=== PATIENT | female | born 1965 | race Two or more races ===

== ENCOUNTER → 2017-11-18 01:46 | Outpatient (CLI) | payer BC, SELFPAY ==
[2017-11-18 08:06] LABS: Abs Immature Grans 0.01 k/cumm (0.0-0.09); Absolute Basophil Count 0.04 k/cumm (0.0-0.2); Absolute Eosinophil Count 0.19 k/cumm (0.0-0.7); Absolute Lymphocyte Count 1.08 k/cumm (1.2-3.4); Absolute Monocyte Count 0.35 k/cumm (0.11-0.7); Absolute Neutrophil Count 3.79 k/cumm (1.2-6.7); Basophils % 0.7; Eosinophils % 3.5; HCT 42.7 % (36.0-46.0); HGB 13.9 g/dL (12.0-15.5); Immature Grans % 0.2; Lymphocytes % 19.8; Mean Corp. HGB Concentration 32.6 g/dL (32.0-36.0); Mean Corpuscular Hemoglobin 29.4 pg (27.0-33.0); Mean Corpuscular Volume 90.3 fL (80-95); Mean Platelet Volume 9.6 fL (8.0-11.0); Monocytes % 6.4; Neutrophils % 69.4; Platelet Count 283 x1000/uL (130-400); RBC 4.73 m/cumm (4.00-5.20); RBC Distribution Width 13.3 % (11.7-14.6); White Blood Cell Count 5.46 k/cumm (4.4-10.8)
[2017-11-18 09:08] LABS: ALT 15 U/L (12-78); AST 16 U/L (15-37); Albumin 3.5 g/dL (3.4-5.0); Alkaline Phosphatase 80 U/L (46-116); Anion Gap 9.4 mmol/L (3-11); BUN 15 mg/dL (7-18); Bilirubin, Total 0.5 mg/dL (0.2-1.0); CO2 28.6 mmol/L (21.0-32.0); Calcium 8.9 mg/dL (8.5-10.1); Chloride 103 mmol/L (98-107); Glucose 88 mg/dL (70-100); Potassium 4.3 mmol/L (3.5-5.1); Sodium 141 mmol/L (136-145); TSH (W/Ref FT4) 1.87 uIU/mL (0.358-3.74); Total Protein 7.3 g/dL (6.4-8.2)
== END ==
DX: R10.13 Epigastric pain (principal); D64.9 Anemia, unspecified; R10.12 Left upper quadrant pain
CPT/HCPCS: 36415; 80053; 84443; 85025

== ENCOUNTER → 2017-11-29 01:17 | Outpatient (CLI) | payer BC, SELFPAY ==
--- NOTE | 2017-11-29 08:42 | DI.REPORT_ITS ---
SYMPTOM/DIAGNOSIS: BREAST LUMPS, BILAT., PERIMENOPAUSAL 1 & II, 2 ON LT DIAGNOSTIC BILATERAL MAMMOGRAM, BILATERAL BREAST ULTRASOUND: Mammograms were interpreted according to the usual protocol including computer analysis with CAD system, tomosynthesis and C view imaging. RIGHT BREAST: Palpable abnormalities are questioned in the 2 o'clock and 11 o'clock positions. The right breast is composed of heterogeneously dense fibroglandular tissue, breast density Category C. Circumscribed nodules are seen in the medial right breast. No abnormality is seen in the upper, outer quadrant. There are two adjacent cysts corresponding to the palpable abnormality 1 cm from the nipple in the 8 o'clock position, corresponding to the mammographic abnormality. An additional 1.5 cm cyst is seen in the upper, inner quadrant at the 2 o'clock position. Two additional smaller cysts are also seen one in the upper outer quadrant measuring 1 cm. No solid masses are seen. LEFT BREAST: Palpable abnormalities are questioned in the 2 o'clock position. The left breast is composed of heterogeneously dense fibroglandular tissue, breast density Category C. No suspicious masses or suspicious microcalcifications or changes are seen. The left breast ultrasound shows an 8 x 7 mm cyst in the 12 o'clock position 1 cm from the nipple. There are other smaller cysts measuring 4 and 5 mm. No solid masses are seen. IMPRESSION: Bilateral Category 2-C, negative mammogram and bilateral breast ultrasound with benign findings of multiple cysts. Yearly screening mammography is recommended. SA ASSESSMENT OF FINDINGS: Negative with benign findings. Category 2. Patient will receive a letter notifying them of these results. Bi-RADS category C. The breasts are heterogeneously dense, which may obscure small masses.
== END ==
DX: N63.10 Unspecified lump in the right breast, unspecified quadrant (principal); N63.20 Unspecified lump in the left breast, unspecified quadrant; N60.11 Diffuse cystic mastopathy of right breast; N60.12 Diffuse cystic mastopathy of left breast; N95.8 Other specified menopausal and perimenopausal disorders
CPT/HCPCS: 76642; 77062; 77066; G0279

== ENCOUNTER 2017-12-29 13:36 | Outpatient (CLI) | payer BC, SELFPAY ==
[2017-12-29 14:40] LABS: Bilirubin Negative (Negative); Blood Small (Negative); Clarity Clear; Glucose Negative (Negative); Ketones Negative (Negative); Leukocyte Esterase Negative (Negative); Nitrite Negative (Negative); Specific Gravity 1.015 (1.005-1.025); Urobilinogen 0.2 EU/dL (Up TO 0.2); pH 7.5 (5-8)
[2017-12-29 14:49] LABS: Bacteria Rare HPF (Negative); C & S Indicated? Yes; Casts Negative LPF (Negative); Crystals Negative HPF (Negative); Epithelial Cells Rare HPF (Negative); Mucus Negative (Negative)
== END 2017-12-29 13:56 ==
DX: R30.0 Dysuria (principal)
CPT/HCPCS: 81003; 81015; 87086

== ENCOUNTER 2018-05-08 10:41 | Outpatient (REF) | payer BC, SELFPAY ==
[2018-05-08 12:39] LABS: Bilirubin Negative (Negative); Blood Moderate (Negative); Clarity Clear; Glucose Negative (Negative); Ketones Negative (Negative); Leukocyte Esterase Negative (Negative); Nitrite Negative (Negative); Specific Gravity 1.025 (1.005-1.025); Urobilinogen 0.2 EU/dL (Up TO 0.2); pH 5.5 (5-8)
[2018-05-08 12:59] LABS: Bacteria Many HPF (Negative); C & S Indicated? No/Sq. Contamination; Casts Negative LPF (Negative); Crystals Negative HPF (Negative); Epithelial Cells Many HPF (Negative); Mucus Moderate (Negative); WBC Negative HPF (0-5)
== END 2018-05-08 11:01 ==
LOC: LBN 10:41
DX: R31.9 Hematuria, unspecified (principal)
CPT/HCPCS: 81003; 81015

== ENCOUNTER 2018-05-26 07:20 | Outpatient (CLI) | payer BC, SELFPAY ==
[2018-05-26 09:05] LABS: ALT 14 U/L (12-78); AST 13 U/L (15-37); Albumin 3.2 g/dL (3.4-5.0); Alkaline Phosphatase 72 U/L (46-116); Anion Gap 6.5 mmol/L (3-11); BUN 17 mg/dL (7-18); Bilirubin, Total 0.6 mg/dL (0.2-1.0); CO2 29.5 mmol/L (21.0-32.0); CREATININE 0.77 mg/dL (0.55-1.02); Calcium 8.4 mg/dL (8.5-10.1); Chloride 103 mmol/L (98-107); Glucose 97 mg/dL (70-100); Potassium 4.3 mmol/L (3.5-5.1); Sodium 139 mmol/L (136-145); Total Protein 6.9 g/dL (6.4-8.2)
== END 2018-05-26 07:40 ==
DX: I10 Essential (primary) hypertension (principal); K21.9 Gastro-esophageal reflux disease without esophagitis; R31.29 Other microscopic hematuria; E03.9 Hypothyroidism, unspecified; G47.61 Periodic limb movement disorder
CPT/HCPCS: 36415; 80053; 81003

== ENCOUNTER 2018-05-26 12:46 | Outpatient (REF) | payer BC, SELFPAY ==
[2018-05-26 13:12] LABS: Bilirubin Negative (Negative); Blood Trace-intact (Negative); Clarity Clear; Glucose Negative (Negative); Ketones Negative (Negative); Leukocyte Esterase Negative (Negative); Nitrite Negative (Negative); Urobilinogen 0.2 EU/dL (Up TO 0.2); pH 6.5 (5-8)
[2018-05-26 13:32] LABS: Bacteria Rare HPF (Negative); C & S Indicated? No; Casts Negative LPF (Negative); Crystals Negative HPF (Negative); Epithelial Cells Rare HPF (Negative); Mucus Trace (Negative); RBC 0-2 (0-2); WBC 0-2 HPF (0-5)
== END 2018-05-26 13:06 ==
LOC: LBN 12:46
DX: N39.0 Urinary tract infection, site not specified (principal); R31.29 Other microscopic hematuria
CPT/HCPCS: 81003; 81015

== ENCOUNTER 2019-03-26 07:00 | Outpatient (CLI) | payer BC, SELFPAY ==
[2019-03-26 13:09] LABS: Abs Immature Grans 0.02 k/cumm (0.0-0.09); Absolute Basophil Count 0.05 k/cumm (0.0-0.2); Absolute Eosinophil Count 0.09 k/cumm (0.0-0.7); Absolute Lymphocyte Count 1.56 k/cumm (1.2-3.4); Absolute Monocyte Count 0.46 k/cumm (0.11-0.7); Absolute Neutrophil Count 4.48 k/cumm (1.2-6.7); Basophils % 0.8; Eosinophils % 1.4; HCT 41.8 % (36.0-46.0); HGB 13.6 g/dL (12.0-15.5); Immature Grans % 0.3; Lymphocytes % 23.4; Mean Corp. HGB Concentration 32.5 g/dL (32.0-36.0); Mean Corpuscular Hemoglobin 28.9 pg (27.0-33.0); Mean Corpuscular Volume 88.9 fL (80-95); Monocytes % 6.9; Neutrophils % 67.2; Platelet Count 332 x1000/uL (130-400); White Blood Cell Count 6.66 k/cumm (4.4-10.8)
[2019-03-26 13:35] LABS: TSH (W/Ref FT4) 1.72 uIU/mL (0.36-3.74)
[2019-03-26 13:42] LABS: Vitamin D 25 Total 19.3 ng/ml (30-100)
== END 2019-03-26 07:20 ==
PROVIDERS: Visit Provider Internal Medicine
DX: I10 Essential (primary) hypertension (principal); R63.5 Abnormal weight gain; R50.9 Fever, unspecified; E83.51 Hypocalcemia
CPT/HCPCS: 36415; 82306; 84443; 85025

== ENCOUNTER 2019-03-29 00:34 | Outpatient (CLI) | payer BC, SELFPAY ==
--- NOTE | 2019-03-29 08:25 | DI.US_ITS ---
EXAM: US ABDOMEN CLINICAL HISTORY: ABD PAIN/NAUSEA, R11.0, R10.9 TECHNIQUE: Ultrasound performed using standard protocol. COMPARISON: LEFT BREAST ULTRASOUND from 11/29/2017 FINDINGS: Visualized liver parenchyma is normal in appearance except for question slight increased echogenicity , hepatic steatosis could be present. No evidence of cholelithiasis or biliary dilatation. Kidneys are unremarkable in appearance with no nephrolithiasis or hydronephrosis. Spleen is unremarkable. A bdominal aorta and IVC are of normal diameter. IMPRESSION: Negative abdominal ultrasound except for question hepatic steatosis.
== END 2019-03-29 00:54 ==
PROVIDERS: Visit Provider Internal Medicine
DX: R10.9 Unspecified abdominal pain (principal); R11.0 Nausea; K76.89 Other specified diseases of liver
CPT/HCPCS: 76700

== ENCOUNTER 2019-03-30 11:29 | Outpatient (CLI) | payer BC, SELFPAY ==
[2019-03-30 16:08] LABS: ALT 21 U/L (14-59); AST 19 U/L (15-37); Alkaline Phosphatase 88 U/L (46-116); Anion Gap 6.7 mmol/L (3-11); BUN 13 mg/dL (7-18); Bilirubin, Total 0.3 mg/dL (0.2-1.0); CO2 29.3 mmol/L (21.0-32.0); CREATININE 0.76 mg/dL (0.55-1.02); Calcium 9.3 mg/dL (8.5-10.1); Calculated LDL 108 mg/dL; Chloride 103 mmol/L (98-107); Cholesterol 201 mg/dL (<200); Glucose 111 mg/dL (74-106); HDL Cholesterol 63 mg/dL (40-60); Potassium 4.5 mmol/L (3.5-5.1); Sodium 139 mmol/L (136-145); Total Protein 7.7 g/dL (6.4-8.2); Triglyceride 151 mg/dL (<150)
[2019-03-30 16:18] LABS: Bilirubin, Direct 0.09 mg/dL (0.00-0.20)
== END 2019-03-30 11:49 ==
PROVIDERS: Visit Provider Internal Medicine
DX: R10.9 Unspecified abdominal pain (principal); R11.0 Nausea; B35.1 Tinea unguium
CPT/HCPCS: 36415; 80053; 80061; 80076

== ENCOUNTER 2019-06-15 02:55 | Outpatient (CLI) | payer BC, SELFPAY ==
--- NOTE | 2019-06-15 07:46 | DI.MAMMO_ITS ---
EXAM: MG MAMMO SCREENING CLINICAL HISTORY: screening,Z12.39 TECHNIQUE: Bilateral full field digital CC and MLO mammographic images were obtained with 3D tomosyn thesis and utilizing computer aided detection (CAD). COMPARISON: 2009 through 2017 FINDINGS: Masses/Architectural Distortion: None seen. Microcalcifications: No suspicious pleomorphic-type are seen. Skin Thickening/Nipple Retraction: None. IMPRESSION: 1. No significant interval change with no specific features of malignancy noted. 2. Unless there is more urgent need, screening mammography is recommended, as per [employer] [employer] guidelines. BI-RADS Cat 1 - Negative Breast Density - Category C - Heterogeneously dense The mammogram demonstrates the patient's breast tissue is dense. Dense breast tissue is very common a nd is not abnormal but dense breast tissue can make it harder to find cancer on a mammogram. Also, de nse breast tissue may increase their breast cancer risk. This information about the result of the [facility] mogram report was provided to the patient to raise their awareness. Use this report when you speak wi th the patient about their risks for breast cancer, which includes their family history. At that time , you may recommend for more screening tests (Ultrasound or MRI) as they might be useful based on the ir risk. A negative radiographic report should not delay biopsy if a dominant or clinically suspicious mass is present. Up to ten percent of cancers are not identified on mammography. A negative report may reinforce clinical impression. Adenosis and dense breasts may obscure an underlying neoplasm. False positive reports average 6 to 10%. Patient will receive a letter notifying them of these results.
== END 2019-06-15 03:15 ==
DX: Z12.31 Encounter for screening mammogram for malignant neoplasm of breast (principal)
CPT/HCPCS: 77063; 77067

== ENCOUNTER 2019-10-23 21:48 | Outpatient (REF) | payer BC, SELFPAY ==
[2019-10-23 22:02] LABS: Bilirubin Negative (Negative); Blood Trace-intact (Negative); Clarity Clear (Clear); Glucose Negative (Negative); Ketones Negative (Negative); Leukocyte Esterase Negative (Negative); Nitrite Negative (Negative); Urobilinogen 0.2 EU/dL (Up TO 0.2); pH 6.5 (5-8)
[2019-10-23 22:11] LABS: Bacteria Many HPF (Negative); C & S Indicated? Yes; Casts Negative LPF (Negative); Crystals Negative HPF (Negative); Epithelial Cells Negative HPF (Negative); Mucus Negative (Negative); Other Cells Negative (Negative); RBC Negative HPF (0-2); WBC Negative HPF (0-5)
== END 2019-10-23 22:08 ==
LOC: LBN 21:48
DX: R30.0 Dysuria (principal)
CPT/HCPCS: 87077; 81003; 81015; 87086; 87186

== ENCOUNTER 2020-05-15 12:58 | Outpatient (REF) | payer BC, SELFPAY ==
--- NOTE | 2020-05-15 08:20 | PAPFT_PTH ---
PATIENT: Jeimy Haley LOC: [facility] U#:[id number] AGE/SX: 54/F ROOM: RE05/15/[address]: Eun Charles APRN : 1965 BED: DIS: 05/15/2020 SPEC #: [id number] RECD: 05/15/20 13:04 STATUS: TEQUILA GLORIA #: [id number] EDGAR: 05/15/20 08:[address]: Eun Charles DEPT: [facility] Cytology RECD BY: Alfreda Schmidt Tissues: 1 - CX/ENDOCX FOR PAP SMEARS Procedures: PAP THIN PREP/UVM Screening HPV DNA PROBE Comments: [id number]
== END 2020-05-15 12:59 | disposition home or self-care (01) ==
LOC: LBN 12:58
DX: Z12.4 Encounter for screening for malignant neoplasm of cervix (principal); Z11.51 Encounter for screening for human papillomavirus (HPV)
CPT/HCPCS: 88142; 87624

== ENCOUNTER 2020-06-18 02:37 | Outpatient (CLI) | payer BC, SELFPAY ==
--- NOTE | 2020-06-18 07:40 | DI.MAMMO_ITS ---
EXAM: MG MAMMO SCREENING CLINICAL HISTORY: screening.Z12.39 TECHNIQUE: Bilateral full field digital CC and MLO mammographic images were obtained with 3D tomosyn thesis and utilizing computer aided detection (CAD). COMPARISON: Available for comparison. FINDINGS: Masses/Architectural Distortion: None seen. Microcalcifications: No suspicious pleomorphic-type are seen. Skin Thickening/Nipple Retraction: None. IMPRESSION: 1. No significant interval change with no specific features of malignancy noted. 2. Unless there is more urgent need, screening mammography is recommended, as per [place] [employer] guidelines. BI-RADS Category 1 - Negative Breast Density - Category C - Heterogeneously dense Breast density category C or D implies that the patient has dense breast tissue. Dense breast tissue is very common and is not abnormal but dense breast tissue can make it harder to find cancer on a ma mmogram. Also, dense breast tissue may increase their breast cancer risk. This information about the result of the mammogram report was provided to the patient to raise their awareness. Use this report when you speak with the patient about their risks for breast cancer, which includes their family hist ory. At that time, you may recommend for more screening tests (Ultrasound or MRI) as they might be us eful based on their risk. A negative radiographic report should not delay biopsy if a dominant or clinically suspicious mass is present. Up to ten percent of cancers are not identified on mammography. A negative report may reinforce clinical impression. Adenosis and dense breasts may obscure an underlying neoplasm. False positive reports average 6 to 10%. Patient will receive a letter notifying them of these results.
== END 2020-06-18 02:57 ==
DX: Z12.31 Encounter for screening mammogram for malignant neoplasm of breast (principal)
CPT/HCPCS: 77063; 77067

== ENCOUNTER 2020-06-18 03:57 | Outpatient (CLI) | payer BC, SELFPAY ==
[2020-06-18 08:14] LABS: ALT 19 U/L (14-59); AST 15 U/L (15-37); Albumin 3.7 g/dL (3.4-5.0); Alkaline Phosphatase 79 U/L (46-116); Anion Gap 6.4 mmol/L (3-11); BUN 15 mg/dL (7-18); Bilirubin, Total 0.4 mg/dL (0.2-1.0); CO2 30.6 mmol/L (21.0-32.0); CREATININE 0.8 mg/dL (0.55-1.02); Calcium 9.2 mg/dL (8.5-10.1); Chloride 101 mmol/L (98-107); Glucose 95 mg/dL (74-106); Potassium 4.5 mmol/L (3.5-5.1); Sodium 138 mmol/L (136-145); Total Protein 7.4 g/dL (6.4-8.2)
[2020-06-19 04:55] LABS: Vitamin D 25 Total 38.1 ng/ml (30-100)
== END 2020-06-18 03:58 | disposition home or self-care (01) ==
LOC: LBO 03:57
DX: Z00.00 Encounter for general adult medical examination without abnormal findings (principal); E55.9 Vitamin D deficiency, unspecified
CPT/HCPCS: 36415; 80053; 82306

== ENCOUNTER 2020-09-10 11:59 | Outpatient (CLI) | payer BC, SELFPAY ==
--- NOTE | 2020-09-10 | DI.RAD_ITS ---
Exam(s) XR SACROILIAC JOINTS EXAM: XR SACROILIAC JOINTS CLINICAL HISTORY: SACROILIAC JOINT PAIN LEFT M53.3. TECHNIQUE: 2D digital imaging was performed. COMPARISON: No exams were available for comparison FINDINGS: BONES: No acute fracture is present. No bony destructive lesion is seen. JOINTS: No dislocation present. No ankylosis, erosions or sclerosis. SOFT TISSUE: Normal. IMPRESSION: Unremarkable radiographs of the sacroiliac joints. DATA REPOSITORY: RADIATION DOSE DELIVERED:
--- NOTE | 2020-09-10 | DI.RAD_ITS ---
Exam(s) XR LUMBAR SPINE COMPLETE EXAM: XR LUMBAR SPINE COMPLETE CLINICAL HISTORY: LOW BACK PAIN M54.5. TECHNIQUE: 2D digital imaging was performed. COMPARISON: No exams were available for comparison FINDINGS: BONES: No fracture or destructive lesion. Vertebral bodies are unremarkable. Degenerative changes of the facets are seen at L5-S1. There are endplate osteophytes at multiple levels. DISKS: Intervertebral disc spaces are maintained. ALIGNMENT: Lumbar spinal alignment is within normal limits. SOFT TISSUE: Normal. IMPRESSION: Mild degenerative changes in the lumbar spine. DATA REPOSITORY: RADIATION DOSE DELIVERED:
== END 2020-09-10 12:19 ==
PROVIDERS: Visit Provider Physician Assistant Medical
DX: M54.5 Low back pain (principal); M47.817 Spondylosis without myelopathy or radiculopathy, lumbosacral region; M25.78 Osteophyte, vertebrae; M53.3 Sacrococcygeal disorders, not elsewhere classified
CPT/HCPCS: 72110; 72202

== ENCOUNTER 2020-09-14 00:11 | Emergency (ER) | payer BC, SELFPAY ==
[2020-09-14 00:14] VITALS: BP 180/100; PULSE 91; RESP 18; TEMP 36.6; O2SAT 98
--- NOTE | 2020-09-14 00:15 | DI.CT_ITS ---
Exam(s) CT LUMBAR SPINE WO EXAM: CT LUMBAR SPINE WO CLINICAL HISTORY: left lower lumbar pain TECHNIQUE: COMPARISON: No exams were available for comparison FINDINGS: CT examination lumbosacral spine was performed according to the usual protocol. No retroperitoneal a denopathy seen. No renal abnormality seen. Abdominal aorta is of normal diameter. The SI joints appear intact. No fracture identified in the lumbar region. Mild endplate and facet hypertrophic degenerative barillas es throughout the lumbar region. Mild disc bulges at L4-5 and L5-S1 without gross disc herniation by CT criteria. Mild loss of height of L5-S1 disc consistent with disc degeneration. No significant c entral canal spinal stenosis or neural foraminal stenosis seen. IMPRESSION: Degenerative changes as described above. No gross disc herniation identified. If there is a high cl inical suspicion of disc herniation additional evaluation with MR would be recommended. RADIATION DOSE DELIVERED: 799.75mGy.cm Total DLP RADIATION OPTIMIZATION: All CT scans at this facility use at least one of these dose optimization te chniques: automated exposure control; mA and/or kV adjustment per patient size (includes targeted exa ms where dose is matched to clinical indication); or iterative reconstruction.
--- NOTE | 2020-09-14 00:37 | W.ED.GENAD ---
Discharge Plan Disposition Patient Disposition: HOME Condition: Good Discharge Details Clinical Impression: Low back pain radiating to left leg Primary Care Provider: Eun Charles ED Provider: Giuliano Veloz Home Meds and New Rx's Prescriptions: New cyclobenzaprine 10 mg tablet 10 mg PO TID Qty: 14 RF: 0 Continued cholecalciferol (vitamin D3) 2,000 unit tablet 2,000 unit PO DAILY Qty: 90 RF: 3 ibuprofen 600 mg tablet 600 mg PO QID PRN (Reason: pain) Qty: 90 RF: 3 acetaminophen 500 mg tablet 1,000 mg PO Q4H PRN (Reason: pain) Qty: 100 RF: 0 calcium citrate-vitamin D3 315 mg-5 mcg (200 unit) tablet 1 tab PO DAILY RF: 0 lisinopril 10 mg tablet 10 mg PO DAILY Qty: 90 RF: 3 cyclobenzaprine 10 mg tablet 10 mg PO HS PRNRF: 0 lidocaine [Lidoderm] 5 % adhesive patch,medicated 1 patch transdermal PRN PRNRF: 0 docusate sodium [Colace] 100 mg capsule 100 mg PO PRN PRNRF: 0 methylprednisolone [Medrol (Neftali)] 4 mg tablets,dose pack See Rx Instructions .ROUTE .COMPLEX RF: 0 Discharge Instructions Instructions: Low Back Strain (ED) Additional Instructions: At this time your signs and symptoms are clinically consistent with a back sprain and a mild bulging disc. This can cause significant pain and take a fair bit of time to heal. I expect 1 to 2 months for potential resolution. In the meantime do not lift anything greater than 5 pounds for the next 2 weeks. Avoid any significant vigorous physical activity. Perform easy gentle regular activities at home without any significant bending or lifting. Please take the steroids as directed that you are prescribed.Please take the Flexeril as directed but do not take it when driving or operating any vehicles or heavy machinery, swimming, taking long baths, or operating firearms. Please use a heating pad as often as possible on your back. Perform daily gentle stretches on your back. Please continue to take the Tylenol and Motrin. You can take 1000 mg of Tylenol every 6 hours and 600 mg of ibuprofen every 6 hours. We have given you a few tablets of a [place] pain pill. Please take these only as needed. They do have some Tylenol in it, so only take 500 mg of Tylenol when you also take 1 of these [place] pain pills. Please continue to take your stool softener at home and drink plenty of fluids. If you notice any worsening of your symptoms, or any new symptoms such as vomiting, diarrhea, fever, chills, shortness of breath, chest pain, numbness or tingling in your groin or legs, weakness in your legs, loss of control for your bowels or bladder, or fainting , please return immediately to the emergency department for reevaluation. Please follow up with your primary care provider as soon as possible for reassessment and reevaluation. As always, it was a pleasure participating in your medical care today. Referrals: Eun Charles NP [Primary Care Provider] - Medical Decision Making This is a pleasant 54-year-old female with a past medical history of hypertension who presents today for evaluation of back pain. Patient states that 3 weeks ago she had done a notable amount of moving of friends and family, and a significant amount of lifting. At that time she had mild achiness in her back. Over the last week it is notably worsened. 4 days ago she went to the local urgent care, had an x-ray performed that was negative, was prescribed steroids and Flexeril. Patient was taking this with minimal improvement until about 12 hours ago when she had a sudden severe worsening of her symptoms. The chronic pain she describes as an achiness in her left lower back and buttock, and then as her pains gotten worse she is also developed tingling in her toes. She denies any weakness in her lower extremities. Patient denies any saddle anesthesia, numbness or tingling in the groin, change in sensation when wiping. Patient denies any change in sensation in the groin, bowel or bladder incontinence, leakage, or urinary retention. Patient denies any weakness in the lower extremities, atypical falls or imbalance. She denies any previous injuries to the back. She denies any IV or illicit drug use. She denies any fever or chills. Symptoms are made worse with bending and lifting, and improved with sitting upright and lying down on her side. Physical exam demonstrates no focal neurologic deficits, no decrease in direct no evidence of weakness or diminished patellar reflexes. Patient does not have concerning red flags for spinal epidural abscess, and clinically she does not show any clinical evidence of this. No indication for emergent MRI imaging at this time. We will get a CT scan of the lumbar area to evaluate for lateral extrusion/radiculopathy. Symptoms are clinically inconsistent with cauda equina syndrome at this time. We will treat with Valium, Lidoderm patch, and morphine. Will monitor closely and reassess. 1:[address] scan has returned, does show evidence of mild degenerative changes in the lower lumbar spine greater on the left. No other significant abnormality. On reassessment the patient continues to show no signs or symptoms clinically suggestive of cauda equina syndrome, spinal epidural abscess, or significant spinal epidural hematoma. Pain is minimally improved with initial medications. We will give a second dose of IM narcotics to help with pain. 2:14 AM Patient has near complete resolution of pain, and is feeling much better and requesting to go home. Repeat assessment continues to show no signs of cauda equina syndrome or acute life-threatening etiology indicative of MRI imaging or inpatient management. Patient will be discharged home with a new prescription for Flexeril for home use as she is almost out of her current Flexeril prescription. Will give 4 [place] tablets to use as needed at home, recommend continue Tylenol Motrin and continuation of her steroid. Discussed red flag for which to return. Recommend close follow-up with her primary care provider on Tuesday, and reassessment. I have extensively reviewed the treatment plan and discharge instructions with the patient and their family. I have addressed all patient concerns at this time. The patient and family was made aware of what symptoms to monitor for that would warrant a return to the emergency department. Discussed the plan with the patient and family, they demonstrate verbal understanding and agreement with our assessment and plan at this time. The documentation in this chart was dictated using [employer] dictation software. Please excuse any dictation errors. FINDINGS: Vertebrae: No acute fracture. Normal alignment. Discs/Spinal canal/Neural foramina: Disc bulging at L5-S1 producing mild central canal stenosis and mild left-sided foraminal stenosis. Mild left foraminal stenosis at L4-L5 Soft tissues: Unremarkable. Minimal pelvic fluid IMPRESSION: Mild degenerative changes in the lower lumbar spine greater on the left as noted Minimal pelvic fluid Thank you for allowing us to participate in the care of your patient. Dictated and Authenticated by: Sylvain Koch MD 09/14/2020 1:10 AM Eastern Time ([place] & [place]) HPI General Date/Time Provider Initiated Documentation: 09/14/20 00:12. HPI Narrative: This is a pleasant 54-year-old female with a past medical history of hypertension who presents today for evaluation of back pain. Patient states that 3 weeks ago she had done a notable amount of moving of friends and family, and a significant amount of lifting. At that time she had mild achiness in her back. Over the last week it is notably worsened. 4 days ago she went to the local urgent care, had an x-ray performed that was negative, was prescribed steroids and Flexeril. Patient was taking this with minimal improvement until about 12 hours ago when she had a sudden severe worsening of her symptoms. The chronic pain she describes as an achiness in her left lower back and buttock, and then as her pains gotten worse she is also developed tingling in her toes. She denies any weakness in her lower extremities. Patient denies any saddle anesthesia, numbness or tingling in the groin, change in sensation when wiping. Patient denies any change in sensation in the groin, bowel or bladder incontinence, leakage, or urinary retention. Patient denies any weakness in the lower extremities, atypical falls or imbalance. She denies any previous injuries to the back. She denies any IV or illicit drug use. She denies any fever or chills. Symptoms are made worse with bending and lifting, and improved with sitting upright and lying down on her side. Related Data Home Medications Medication Instructions Recorded Confirmed acetaminophen 500 mg tablet 1,000 mg PO Q4H PRN #100 tab 01/02/19 09/14/20 ibuprofen 600 mg tablet 600 mg PO QID PRN #90 tab 01/02/19 09/14/20 cholecalciferol (vitamin D3) 50 2,000 unit PO DAILY #90 tab 05/14/19 09/14/20 mcg (2,000 unit) tablet calcium citrate 315 mg-vitamin D3 1 tab PO DAILY 05/15/20 09/14/20 5 mcg (200 unit) tablet lisinopril 10 mg tablet 10 mg PO DAILY #90 tab 05/15/20 09/14/20 cyclobenzaprine 10 mg PO HS PRN 09/14/20 09/14/20 cyclobenzaprine 10 mg PO TID #14 tab 09/14/20 docusate sodium [Colace] 100 mg PO PRN PRN 09/14/20 09/14/20 lidocaine [Lidoderm] 1 patch TRANSDERMAL PRN PRN 09/14/20 09/14/20 methylprednisolone [Medrol (Neftali)] See Rx Instructions .ROUTE .COMPLEX 09/14/20 09/14/20 Previous Rx's Medication Instructions Recorded acetaminophen 500 mg tablet 1,000 mg PO Q4H PRN #100 tab 01/02/19 ibuprofen 600 mg tablet 600 mg PO QID PRN #90 tab 01/02/19 cholecalciferol (vitamin D3) 50 2,000 unit PO DAILY #90 tab 05/14/19 mcg (2,000 unit) tablet lisinopril 10 mg tablet 10 mg PO DAILY #90 tab 05/15/20 cyclobenzaprine 10 mg PO TID #14 tab 09/14/20 Allergies Allergy/AdvReac Type Severity Reaction Status Date / Time No Known Allergies Allergy Verified 05/15/20 08:12 General Stated Complaint: Nk/Back Pain JOSE: 3 Review of Systems All systems reviewed & are unremarkable except as noted in HPI and below PFSH Medical History Breast lump in female (12/06/17) Dysfunctional uterine bleeding Gastroesophageal reflux disease (12/06/17) Healthcare maintenance Insomnia due to medical condition (12/06/17) perimenopause Irregular bowel habits (11/16/17) Lumbar back pain with radiculopathy affecting left lower extremity Mitral valve regurgitation Family History Mother , age 75 Essential hypertension Brain cancer 01/24 Father Essential hypertension Sister No problems noted. Brother Substance abuse Essential hypertension Alcohol abuse Maternal Grandfather , age 70 Essential hypertension Heart disease Paternal Grandfather , age 50 Stroke Alcohol abuse Maternal Grandmother , age 91 Breast cancer Paternal Grandmother , age 87 No problems noted. Son Alcohol abuse Substance abuse Daughter No problems noted. Social History Smoking/Tobacco Use Status: Never Second Hand Exposure: No Smoking risk assessment performed?: Yes Alcohol Intake: current Alcohol Intake frequency: a few times a week Alcohol type: beer and wine Substance use type: does not use Counseling given: No Counseling provided: none Caregiver/Support person: No Household members: spouse Housing: house Communication Needs: None Do you need help understanding health information?: Never Pets and animals: No Sexually active: Yes Do you think of yourself as: straight/heterosexual Current gender identity: female What is your relationship status?: How often do you talk on the phone with friends or family?: three or more times per week How often do you get together with friends or relatives?: twice per week How often do you attend mandaen or uatsdin services?: 1-3 times per year Do you belong to any clubs or organized social groups?: no Panel score (0-1 are the most socially isolated patients): 2 What type of physical activity do you participate in: walking, running and yoga Duration: 30-45 minutes/day Frequency: 3-4 times per week Mariana/Buddhism: Orthodox Special mariana needs: No Seatbelt use: always Helmet use: Yes Helmet use: always Drive intox or ride w/intox 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 3.ENT: Atraumatic external nose and ears. Moist MM. Neck: Symmetric, trachea midline, No thyromegaly. 4.CVS: +S1/S2, No murmurs or gallops. Peripheral pulses 2+ and equal in all extremities. Brisk capillary refill in all extremities. 5.RESP: Unlabored respiratory effort. Clear to auscultation bilaterally. No wheezes rales or rhonchi 6.GI: Soft, Nontender/Nondistended, No hepatosplenomegaly. No guarding or rebound. 7.MSK: Normocephalic/Atraumatic, Extremities w/o deformity or ttp No cyanosis or clubbing, Normal movement of all extremities No midline tenderness to palpation over the CTLS spine. Normal ROM in flexion, extension, side bend, and rotation. Patient has +5 out of 5 strength in the lower extremities in dorsiflexion and plantarflexion, knee flexion and extension, hip flexion and extension. Normal strength for dorsiflexion and plantar flexion of the great toe bilaterally. There is +2 over 2 dorsalis pedis pulses bilaterally. There is normal sensation to the skin with light touch at the foot, knee, and hip. Normal saddle sensation. Good sensation over the deep sural nerve area bilaterally. Rectal exam demonstrates good rectal tone, good perirectal sensation. Reflexes are +2 over 4 in the patellar reflex bilaterally. Slight worsening of pain with straight leg raise of left leg. Reproducible pain in the left buttock and left lower lumbar/SI joint area. Genital exam was performed with female nurse Kristine at bedside. 8.Skin: Warm, Dry. No rashes or lesions. 9.Neuro: bevel operator II-XII grossly intact. Sensation grossly intact, no focal neurologic deficits. 10.Psych: (AAO) x3. Appropriate mood and affect Course Vital Signs Vital signs: Vital Signs Temperature 36.6 C 09/14/20 00:14 Pulse 91 H 09/14/20 00:14 Respiratory Rate 18 09/14/20 00:14 Blood Pressure 180/100 H 09/14/20 00:14 Pulse Oximetry 98 09/14/20 00:14 Temperature 36.6 C 09/14/20 00:14 Temperature Source Skin 09/14/20 00:14 Pulse 91 H 09/14/20 00:14 Respiratory Rate 18 09/14/20 00:14 Respiratory Effort Non-Labored 09/14/20 00:23 Blood Pressure 180/100 H 09/14/20 00:14 Blood Pressure Position Sitting 09/14/20 00:14 Pulse Oximetry 98 09/14/20 00:14 Oxygen Delivery Method Room Air 09/14/20 00:14 Oxygen Flow Rate 0 09/14/20 00:14 Pain Level 9 09/14/20 00:22
[2020-09-14] MEDS: diazePAM 5 MG TAB PO (00:39)
[2020-09-14] MEDS: Lidocaine 5% Patch 1 PATCH TP (00:40)
[2020-09-14 00:50] LABS: Bilirubin Negative (Negative); Blood Small (Negative); Clarity Clear (Clear); Glucose Negative (Negative); Ketones Negative (Negative); Leukocyte Esterase Negative (Negative); Nitrite Negative (Negative); Urobilinogen 0.2 EU/dL (Up TO 0.2); pH 5.5 (5-8)
[2020-09-14 00:54] LABS: Bacteria Negative HPF (Negative); C & S Indicated? No; Casts Negative LPF (Negative); Crystals Negative HPF (Negative); Epithelial Cells Negative HPF (Negative); Mucus Negative (Negative); WBC Negative HPF (0-5)
--- NOTE | 2020-09-14 01:10 | DI.VRAD_ITS ---
PROCEDURE INFORMATION: Exam: CT Lumbar Spine Without Contrast Exam date and time: 09/14/2020 12:29 AM Age: 54 years old Clinical indication: Low back pain; Patient HX: Left lower lumbar pain TECHNIQUE: Imaging protocol: Computed tomography images of the lumbar spine without contrast. COMPARISON: CR XR LUMBAR SPINE COMPLETE 09/10/2020 11:08 AM FINDINGS: Vertebrae: No acute fracture. Normal alignment. Discs/Spinal canal/Neural foramina: Disc bulging at L5-S1 producing mild central canal stenosis and mild left-sided foraminal stenosis. Mild left foraminal stenosis at L4-L5 Soft tissues: Unremarkable. Minimal pelvic fluid IMPRESSION: Mild degenerative changes in the lower lumbar spine greater on the left as noted Minimal pelvic fluid Dictated and Authenticated by: Sylvain Koch MD. Ordering:PARVEZ Nobles MD
[2020-09-14] MEDS: HYDROmorphone 2 MG/ML VIAL 1.5 MG IM (01:27)
[2020-09-14 02:21] VITALS: BP 126/76; PULSE 78; RESP 18; TEMP 36.6; O2SAT 97
== END 2020-09-14 02:20 | disposition home or self-care (01) ==
PROVIDERS: Emergency Provider Student in an Organized Health Care Education/Training Program
DX: M54.16 Radiculopathy, lumbar region (principal)
CPT/HCPCS: 96372; 99284; 72131; 81003; 81015; 99285

== ENCOUNTER 2021-01-26 02:00 | Outpatient (CLI) | payer BC, SELFPAY ==
--- NOTE | 2021-01-26 15:00 | DI.MRI_ITS ---
Exam(s) MR LUMBAR SPINE WO EXAM: MR LUMBAR SPINE WO CLINICAL HISTORY: CT scan in September with L5-S1, disc herniation:LOW BACK PAIN, LT LEG PAIN,[id number].. TECHNIQUE: Multiplanar multisequence MRI of the Lumbar spine was performed. COMPARISON: Plain films of the lumbar spine performed 09/10/2020 were reviewed FINDINGS: Conus medullaris is at normal level. There is no evidence of conus mass nor subjacent clumping of in trathecal nerve roots to suggest arachnoiditis. The distal thecal sac appears unremarkable.There is no evidence of Tarlov intrasacral cysts nor other significant findings within the sacral canal Bones:There are no fractures nor ominous osseous lesions in the lumbar vertebral bodies and visualize d sacrum. There is a benign intraosseous hemangioma in the right side of the L3 vertebral body. With respect to the individual levels... T12-L1: Unremarkable L1-2: Normal disc height and signal. No disc herniation nor central canal stenosis.No foraminal steno sis L2-3: Normal disc height. There is a posterolateral and lateral left disc herniation which extends po steriorly 4 millimeters and is approximately 2.8 cm wide. This extends from the lateral central subl igamentous aspect through the exiting left neural foramen. However, there is no prominent foraminal stenosis at this level due to the absence of height loss of the disc. The exiting neural foramen on the opposite-right side is widely patent. Central canal dimensions are lower normal.No foraminal courtney nosis.No facet arthropathy. L3-4: Normal disc height. No disc herniation or central canal stenosis.No foraminal stenosis.No face t arthropathy. L4-5: Small disc height and signal. Symmetrical annular bulging. Central canal dimensions are lower normal. No foraminal stenosis. Right facet joint appears unremarkable. Some degenerative changes seen in the left facet joint at this level. L5-S1: This level exhibits decreased disc height (moderate). There is posterolateral left disc protr usion which extends posteriorly 3 millimeters and is approximately 9 millimeters wide. This occupies part of the left lateral recess at this level. Central canal dimensions are within normal limits. There is no prominent narrowing of the exiting neural foramen on either side at this level. Mild fac et joint degenerative changes Soft tissues: paraspinal soft tissues appear unremarkable. IMPRESSION: 1. There are left side disc herniations at L 2-3 level and L5-S1 levels, as described above. DATA REPOSITORY:
== END 2021-01-26 02:20 ==
DX: M54.59 Other low back pain (principal); M79.605 Pain in left leg; M51.16 Intervertebral disc disorders with radiculopathy, lumbar region; M51.17 Intervertebral disc disorders with radiculopathy, lumbosacral region; M47.27 Other spondylosis with radiculopathy, lumbosacral region
CPT/HCPCS: 72148

== ENCOUNTER 2021-03-12 12:48 | Outpatient (CLI) | payer BC, SELFPAY ==
--- NOTE | 2021-03-12 06:00 | DI.RAD_ITS ---
Exam(s) XR PAIN CLINIC LUMBAR SP 2V EXAM: XR PAIN CLINIC LUMBAR SP 2V CLINICAL HISTORY: DX: lumbar radiculopathy TECHNIQUE: 2D and realtime digital imaging was performed. Radiologist not present. CONTRAST MATERIAL: None. COMPARISON: No exams were available for comparison FINDINGS: Fluoroscopy was provided for pain management therapy. Please refer to procedure report or details. Cumulative dose: Ka,r=7.7 mGy IMPRESSION: RADIATION DOSE DELIVERED:
[2021-03-12 12:59] VITALS: BP 148/95; PULSE 66; RESP 18; TEMP 36.6; O2SAT 100
[2021-03-12] MEDS: Omnipaque 240 MG/ML 50 ML BTL IJ (13:29)
[2021-03-12] MEDS: methylPREDNISolone ACETATE 80 MG/ML VIAL IJ (13:30)
--- NOTE | 2021-03-12 13:32 | PDOC.PAIN_ITS ---
Pain Clinic Procedure Note Procedure Note Procedure Note: Lumbar Epidural Steroid Injection Procedure Note COMMENTS: Pre-procedure pain VAS was 6/10. DX: Lumbosacral radiculopathy Jeimy Haley has been referred to the [facility] for lumbar epidural steroid injection. The patient was greeted by the nurse who verified patients name and . Patient was then taken to the fluoroscopy suite. The patient was interviewed and the medial record reviewed. There were no medical, pharmacologic, radiographic, or other structural contraindications to attempting fluoroscopically guided lumbar epidural steroid injection. Risks and expected side effects as well as potential benefits of the procedure were reviewed and voiced concerns expressed. The patient consent form was signed and witnessed. Standard patient time-out procedure was performed. The patient was placed in the prone position on the fluoroscopy table and automated blood pressure cuff and pulse oximeter applied. The skin entry point for entering/approaching the epidural space at the right L5-S1 and marked. Following thorough chlorhexadine preparation of the skin and draping and 1% lidocaine infiltration of the skin entry point and subcutaneous tissues, a 18 gauge Touhy needle was placed under fluoroscopic guidance and with loss of resistance technique into the epidural space. Needle tip placement and depth were aided and confirmed by fluoroscopy. There was no paresthesia or return of blood or CSF through the needle. 1 cc's of Omnipaque 240 was injected with clear epidural spread confirmed with fluoroscopy. 80mg depomedrol was injected. There was not any unusual discomfort expressed by Jeimy Haley. Patient's vital signs were stable throughout the procedure and were as recorded in nursing records. Follow up plans and appointments were discussed with patient. Post procedure instruction was given as documented in nursing records and having met discharge criteria and was discharged from the [facility]. COMMENTS: If this procedure is helpful, it can be completed up to 3 times per 12 months. Post-procedure pain VAS is 1/10. Kahlil Figueroa DO, MPH [facility] - Pain Management
[2021-03-12 13:35] VITALS: BP 147/89; PULSE 79; RESP 13; O2SAT 100
== END 2021-03-12 12:49 | disposition home or self-care (01) ==
LOC: PC 12:48
PROVIDERS: Visit Provider Preventive Medicine Occupational Medicine
DX: M54.17 Radiculopathy, lumbosacral region (principal)
CPT/HCPCS: 62323; 72100; J1040; Q9967

== ENCOUNTER 2021-08-06 02:59 | Outpatient (CLI) | payer BC, SELFPAY ==
[2021-08-06 08:51] LABS: ALT 25 U/L (14-59); AST 18 U/L (15-37); Albumin 3.8 g/dL (3.4-5.0); Alkaline Phosphatase 74 U/L (46-116); Anion Gap 3.9 mmol/L (3-11); BUN 19 mg/dL (7-18); Bilirubin, Total 0.4 mg/dL (0.2-1.0); CO2 31.1 mmol/L (21.0-32.0); CREATININE 0.7 mg/dL (0.55-1.02); Calcium 9.1 mg/dL (8.5-10.1); Chloride 105 mmol/L (98-107); Glucose 97 mg/dL (74-106); Potassium 4.4 mmol/L (3.5-5.1); Sodium 140 mmol/L (136-145)
== END 2021-08-06 03:00 | disposition home or self-care (01) ==
LOC: LBO 02:59
DX: Z00.00 Encounter for general adult medical examination without abnormal findings (principal); I10 Essential (primary) hypertension
CPT/HCPCS: 36415; 80053

== ENCOUNTER 2021-08-06 12:45 | Outpatient (CLI) | payer BC, SELFPAY ==
--- NOTE | 2021-08-06 13:39 | PDOC.PAIN_ITS ---
Pain Clinic Procedure Note Procedure Note Procedure Note: Lumbar Epidural Steroid Injection Procedure Note COMMENTS:She did exceedingly well with her last LESI up until here recently. Her pre-procedure pain VAS was 6/10. Her pain is in the low back and radiating down the left leg. Dx: Lumbosacral radiculopathy Jeimy Haley has been referred to the [facility] for lumbar epidural steroid injection. The patient was greeted by the nurse who verified patients name and . Patient was then taken to the fluoroscopy suite. The patient was interviewed and the medial record reviewed. There were no medical, pharmacologic, radiographic, or other structural contraindications to attempting fluoroscopically guided lumbar epidural steroid injection. Risks and expected side effects as well as potential benefits of the procedure were reviewed and voiced concerns expressed. The patient consent form was signed and witnessed. Standard patient time-out procedure was performed. The patient was placed in the prone position on the fluoroscopy table and automated blood pressure cuff and pulse oximeter applied. The skin entry point for entering/approaching the epidural space at the left L5-S1 interspace and marked. Following thorough chlorhexadine preparation of the skin and draping and 1% lidocaine infiltration of the skin entry point and subcutaneous tissues, a 18 gauge Touhy needle was placed under fluoroscopic guidance and with loss of resistance technique into the epidural space. Needle tip placement and depth were aided and confirmed by fluoroscopy. There was no paresthesia or return of blood or CSF through the needle. 1 cc's of Omnipaque 240 was injected with clear epidural spread confirmed with fluoroscopy. 80mg depomedrol was injected. There was not any unusual discomfort expressed by Jeimy Haley. Patient's vital signs were stable throughout the procedure and were as recorded in nursing records. Follow up plans and appointments were discussed with patient. Post procedure instruction was given as documented in nursing records and having met discharge criteria and was discharged from the [facility]. COMMENTS: If this procedure is helpful, it can be completed up to 3 times per 12 months. Her post-procedure pain VAS was 4/10. Kahlil Figueroa DO, MPH [facility]-Pain Management [facility] for [facility]
--- NOTE | 2021-08-06 13:40 | DI.RAD_ITS ---
Exam(s) XR PAIN CLINIC LUMBAR SP 2V EXAM: XR PAIN CLINIC LUMBAR SP 2V CLINICAL HISTORY: Dx: Lumbar Radiculopathy TECHNIQUE: 2D and realtime digital imaging was performed. COMPARISON: No exams were available for comparison FINDINGS: C-arm fluoroscopy was utilized by Dr. Figueroa. Please see the procedure note. Hard copy shows needle p lacement at L5-S1 on the lateral view. IMPRESSION: RADIATION DOSE DELIVERED: eran Rousseau=19.33 mGy
[2021-08-06] MEDS: methylPREDNISolone ACETATE 80 MG/ML VIAL IJ (13:42)
[2021-08-06] MEDS: Omnipaque 240 MG/ML 50 ML BTL IJ (13:42)
[2021-08-06 13:51] VITALS: BP 136/72; PULSE 68; RESP 19; O2SAT 100
== END 2021-08-06 12:46 | disposition home or self-care (01) ==
LOC: PC 12:46
PROVIDERS: Visit Provider Preventive Medicine Occupational Medicine
DX: M54.17 Radiculopathy, lumbosacral region (principal)
CPT/HCPCS: 62323; 72100; J1040; Q9967

== ENCOUNTER 2021-08-18 00:43 | Outpatient (CLI) | payer BC, SELFPAY ==
--- NOTE | 2021-08-18 15:24 | DI.MAMMO_ITS ---
Exam(s) MAMMO SCREENING EXAM: MAMMO SCREENING CLINICAL HISTORY: screening, Z12.39. TECHNIQUE: Bilateral full field digital CC and MLO mammographic images were obtained with 3D tomosyn thesis and utilizing computer aided detection (CAD). COMPARISON: Prior mammograms were reviewed, the most recent being June 2020. FINDINGS: There has been no significant change in the appearance and distribution the fibroglandular tissue whi ch is again noted be moderately dense, this somewhat decreasing the sensitivity of the mammogram for finding hidden lesions. The left breast on 3D cc imaging there is a asymmetric density located 4 cm in from the nipple, sligh tly lateral of center measuring 10 x 7 millimeters. Spot compression view recommended No malignant-appearing microcalcification groups in either breast There is no significant architectural distortion nor skin thickening-retraction. IMPRESSION: Moderately dense fibroglandular tissue. Asymmetric density in the left breast which require spot CC view and ultrasound. BI-RADS Category 0 - Assessment Incomplete: Need additional imaging evaluation Breast Density - Category C - Heterogeneously dense Breast density Category C or D implies that the patient has dense breast tissue. Dense breast tissue can make it harder to find cancer on a mammogram. Dense breast tissue is also associated with an incr eased risk of breast cancer. This information about the result of the mammogram report was provided to the patient to raise their awareness. Use this report when you speak with the patient about their risks for breast cancer, which includes their family history. At that time, you may recommend additional screening tests (Ultrasoun d or MRI) as these tests may add significant information. A negative radiographic report should not delay biopsy if a dominant or clinically suspicious mass is present. Up to ten percent of cancers are not identified on mammography. A negative report may reinforce clinical impression. Adenosis and dense breasts may obscure an underlying neoplasm. False positive reports average 6 to 10%. Patient will receive a letter notifying them of these results.
--- NOTE | 2021-08-18 15:29 | DI.RAD_ITS ---
Exam(s) XR HAND LT COMPLETE EXAM: XR HAND LT COMPLETE CLINICAL HISTORY: distal joint, left middle finger, deformed, edema, PAIN, M25.549. TECHNIQUE: 2D digital imaging was performed. COMPARISON: No exams were available for comparison FINDINGS: 3 views There is no evidence of fracture nor dislocation no radiopaque foreign body. However, there is signi ficant narrowing of the DIP joint of 3rd-middle finger. Other DIP joints are not similarly affected. PIP and MTP joints appear unremarkable. There is no degenerative change evident at the 1st carpome tacarpal joint. Bone density is normal. 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 DATA REPOSITORY: RADIATION DOSE DELIVERED:
== END 2021-08-18 01:03 ==
DX: M25.542 Pain in joints of left hand (principal); Z12.31 Encounter for screening mammogram for malignant neoplasm of breast; R92.8 Other abnormal and inconclusive findings on diagnostic imaging of breast
CPT/HCPCS: 77063; 77067; 73130

== ENCOUNTER → 2021-08-28 01:23 | Outpatient (CLI) | payer BC, SELFPAY ==
--- NOTE | 2021-08-28 13:00 | DI.MAMMO_ITS ---
Exam(s) MG MAMMO SCREEN CALL BACK UNI US BREAST LT LIMITED EXAM: MG MAMMO SCREEN CALL BACK UNI and U/S breast LT limited CLINICAL HISTORY: F/U ABNL MAMMO, ASYMMETRIC DENSITY IN LT BREAST. TECHNIQUE: Craniocaudal and mediolateral oblique Full Field Digital Mammography views of the left br east with Computer Aided Diagnosis followed by Tomosynthesis and left breast ultrasound. COMPARISON: Comparison with prior examinations. FINDINGS: Mammography/Tomosynthesis: Masses/Architectural Distortion: None seen. Microcalcifictions: No suspicious pleomorphic-type are seen. Skin Thickening/Nipple Retraction: None. Limited left breast US: Echotexture: Normal appearance of the glandular tissue. Shadowing: No suspicious foci. Cyst: There is a 4 x 2 x 4 mm simple cyst at the 6 o'clock position 2 cm from the nipple. There is a complex 6 x 4 x 7 mm cyst at the 12 o'clock position 1 cm from the nipple. Solid lesions: None seen. Ductal dilation: None. IMPRESSION: 1. No evidence of malignancy is noted. 2. A follow-up left mammogram and ultrasound are requested in 6 months for re-evaluation. 3. The findings were discussed with the patient on the date of the examination. BI-RADS Category 3 - 6 month - Probably Benign Finding: Recommend follow-up imaging in 6 months Breast Density - Category C - Heterogeneously dense Breast density Category C or D implies that the patient has dense breast tissue. Dense breast tissue can make it harder to find cancer on a mammogram. Dense breast tissue is also associated with an incr eased risk of breast cancer. This information about the result of the mammogram report was provided to the patient to raise their awareness. Use this report when you speak with the patient about their risks for breast cancer, which includes their family history. At that time, you may recommend additional screening tests (Ultrasoun d or MRI) as these tests may add significant information. A negative radiographic report should not delay biopsy if a dominant or clinically suspicious mass is present. Up to ten percent of cancers are not identified on mammography. A negative report may reinforce clinical impression. Adenosis and dense breasts may obscure an underlying neoplasm. False positive reports average 6 to 10%. Patient will receive a letter notifying them of these results.
== END ==
DX: Z12.31 Encounter for screening mammogram for malignant neoplasm of breast (principal); R92.8 Other abnormal and inconclusive findings on diagnostic imaging of breast; N60.12 Diffuse cystic mastopathy of left breast
CPT/HCPCS: 76642; 77063; 77067

== ENCOUNTER → 2022-03-09 02:51 | Outpatient (CLI) | payer BC, SELFPAY ==
--- NOTE | 2022-03-09 06:45 | DI.MAMMO_ITS ---
Exam(s) US BREAST LT COMPLETE MG MAMMO DIAGNOSTIC UNI EXAM: MG MAMMO DIAGNOSTIC UNI and U/S breast LT complete CLINICAL HISTORY: 3-6 mo f/u, f/u abnormal mammo,r92.8.z09. TECHNIQUE: Craniocaudal and mediolateral oblique Full Field Digital Mammography views of the left br east with Computer Aided Diagnosis followed by Tomosynthesis and left breast ultrasound. COMPARISON: Comparison is made with prior examinations. FINDINGS: Mammography/Tomosynthesis: Masses/Architectural Distortion: None seen. Microcalcifictions: No suspicious pleomorphic-type are seen. Skin Thickening/Nipple Retraction: None. Complete left breast US: Echotexture: Normal appearance of the glandular tissue. Shadowing: No suspicious foci. Cyst: The complex cyst at the 12 o'clock position of the left breast 1 cm from the nipple is again se en. It measures 0.6 x 0.3 x 0.6 cm. It shows no significant change compared to the prior examinatio ns sonographically. The previously noted cyst at 6 o'clock is not visualized on the current examinat ion. Solid lesions: None seen. Ductal dilation: None. IMPRESSION: 1. No evidence of malignancy is noted. 2. A six-month follow-up left mammogram and left breast ultrasound are requested for re-evaluation. 3. The findings were discussed with the patient on the date of the examination. BI-RADS Category 3 - 6 month - Probably Benign Finding: Recommend follow-up imaging in 6 months Breast Density - Category C - Heterogeneously dense Breast density Category C or D implies that the patient has dense breast tissue. Dense breast tissue can make it harder to find cancer on a mammogram. Dense breast tissue is also associated with an incr eased risk of breast cancer. This information about the result of the mammogram report was provided to the patient to raise their awareness. Use this report when you speak with the patient about their risks for breast cancer, which includes their family history. At that time, you may recommend additional screening tests (Ultrasoun d or MRI) as these tests may add significant information. A negative radiographic report should not delay biopsy if a dominant or clinically suspicious mass is present. Up to ten percent of cancers are not identified on mammography. A negative report may reinforce clinical impression. Adenosis and dense breasts may obscure an underlying neoplasm. False positive reports average 6 to 10%. Patient will receive a letter notifying them of these results.
== END ==
PROVIDERS: PCP Nurse Practitioner Family
DX: R92.8 Other abnormal and inconclusive findings on diagnostic imaging of breast (principal); Z09 Encounter for follow-up examination after completed treatment for conditions other than malignant neoplasm
CPT/HCPCS: 76642; 77061; 77065; G0279

== ENCOUNTER 2022-10-29 00:06 | Outpatient (CLI) | payer BC, SELFPAY ==
--- NOTE | 2022-10-29 07:45 | DI.MAMMO_ITS ---
Exam(s) MG MAMMO DIAGNOSTIC BI US BREAST LT LIMITED EXAM: MG MAMMO DIAGNOSTIC BI CLINICAL HISTORY: 3-6 mo f/u,r92.8,z09. COMPARISON: MG Screening Bilat Mammo from 05/03/2016 MG Screening Bilat Mammo from 05/12/2017 MG Mammo Diagnostic Bilat from 11/29/2017 MG MG MAMMO SCREENING from 06/18/2020 MG MG MAMMO SCREENING from 08/18/2021 US US BREAST LT LIMITED from 08/28/2021 US US BREAST LT COMPLETE from 03/09/2022 US US BREAST LT LIMITED from 10/29/2022 TECHNIQUE: Craniocaudal and mediolateral oblique Full Field Digital Mammography views of the both br easts with Computer Aided Diagnosis followed by Tomosynthesis and left breast ultrasound. FINDINGS: Mammography/Tomosynthesis: Masses/Architectural Distortion: None seen. Microcalcifications: No suspicious pleomorphic-type are seen. Skin Thickening/Nipple Retraction: None. Left breast US: Echotexture: Normal appearance of the glandular tissue. Shadowing: No suspicious foci. Cyst: 5 x 7 millimeter cyst 12 o'clock position, 1 cm from the nipple no appears to represent a simpl e cyst without internal echoes. Increased through transmission. Solid lesions: None seen. Ductal dilation: None. IMPRESSION: 1. No evidence of malignancy is noted. 2. Unless there is more urgent need, follow-up screening mammography is recommended, as per [employer] guidelines. BI-RADS Category 2 - Benign Findings Breast Density - Category C - Heterogeneously dense Breast density category C or D implies that the patient has dense breast tissue. Dense breast tissue is very common and is not abnormal but dense breast tissue can make it harder to find cancer on a ma mmogram. Also, dense breast tissue may increase their breast cancer risk. This information about the result of the mammogram report was provided to the patient to raise their awareness. Use this report when you speak with the patient about their risks for breast cancer, which includes their family hist ory. At that time, you may recommend for more screening tests (Ultrasound or MRI) as they might be us eful based on their risk. A negative radiographic report should not delay biopsy if a dominant or clinically suspicious mass is present. Up to ten percent of cancers are not identified on mammography. A negative report may reinforce clinical impression. Adenosis and dense breasts may obscure an underlying neoplasm. False positive reports average 6 to 10%. Patient will receive a letter notifying them of these results.
== END 2022-10-29 00:26 ==
LOC: DI 00:07
PROVIDERS: PCP Nurse Practitioner Family; Visit Provider Nurse Practitioner Family
DX: R92.8 Other abnormal and inconclusive findings on diagnostic imaging of breast (principal); Z09 Encounter for follow-up examination after completed treatment for conditions other than malignant neoplasm
CPT/HCPCS: 76642; 77062; 77066; G0279

== ENCOUNTER 2023-08-08 08:31 | Outpatient (CLI) | payer BC, SELFPAY ==
[2023-08-08 13:02] LABS: ALT 27 U/L (14-59); AST 21 U/L (15-37); Albumin 3.8 g/dL (3.4-5.0); Alkaline Phosphatase 76 U/L (46-116); Anion Gap 8.4 mmol/L (3-11); BUN 16 mg/dL (7-18); Bilirubin, Total 0.4 mg/dL (0.2-1.0); CO2 29.6 mmol/L (21.0-32.0); CREATININE 0.8 mg/dL (0.55-1.02); Calcium 9.1 mg/dL (8.5-10.1); Calculated LDL 126 mg/dL (<100); Chloride 103 mmol/L (98-107); Cholesterol 215 mg/dL (<200); Estimated GFR 85.35 (mL/min/1.73m2); Glucose 98 mg/dL (74-106); HDL Cholesterol 70 mg/dL (40-60); Potassium 3.8 mmol/L (3.5-5.1); Sodium 141 mmol/L (136-145); Total Protein 7.7 g/dL (6.4-8.2); Triglyceride 95 mg/dL (<150)
[2023-08-08 18:00] LABS: Hepatitis C Ab w Rflx HCV PCR Negative (Negative)
[2023-08-08 18:05] LABS: HIV-1/2 Ag & Ab Screen Negative (Negative)
[2023-08-09 10:40] LABS: Syphilis Serology (RPR) Negative (Negative)
== END 2023-08-08 08:32 | disposition home or self-care (01) ==
LOC: LOS 08:31
PROVIDERS: PCP Nurse Practitioner Family; Referring Provider Nurse Practitioner Family; Visit Provider Nurse Practitioner Family
DX: Z13.220 Encounter for screening for lipoid disorders (principal); Z11.3 Encounter for screening for infections with a predominantly sexual mode of transmission
CPT/HCPCS: 36415; 80053; 80061; 86803; 87389; 86592

== ENCOUNTER 2023-08-08 16:11 | Outpatient (REF) | payer BC, SELFPAY ==
[2023-08-10 13:22] LABS: Chlamydia Result Negative (Negative); GC Result Negative (Negative)
== END 2023-08-08 16:12 | disposition home or self-care (01) ==
LOC: LBN 16:11
PROVIDERS: PCP Nurse Practitioner Family; Visit Provider Nurse Practitioner Family
DX: N89.8 Other specified noninflammatory disorders of vagina (principal); Z11.3 Encounter for screening for infections with a predominantly sexual mode of transmission
CPT/HCPCS: 87491; 87591; 87480; 87510; 87660

== ENCOUNTER 2023-11-18 00:09 | Outpatient (CLI) | payer BC, SELFPAY ==
--- NOTE | 2023-11-18 07:47 | DI.MAMMO_ITS ---
Exam(s) MAMMO SCREENING EXAM: MAMMO SCREENING CLINICAL HISTORY: screening,Z12.39. TECHNIQUE: Bilateral full field digital CC and MLO mammographic images were obtained with 3D tomosyn thesis and utilizing computer aided detection (CAD). COMPARISON: Prior mammograms were reviewed. Prior ultrasound reviewed FINDINGS: Fibroglandular tissue pattern is again noted be moderately dense. There are no new right breast findings. In the left breast there is a well-defined lobulated 12 by 8 mm nodule located 6 cm in from the nippl e on the MLO view and exhibiting a single peripheral calcification.. Requires further investigation. There are no malignant-appearing microcalcification groups in either breast. There is no significant architectural distortion nor skin thickening-retraction. IMPRESSION: Moderately dense fibroglandular tissue. No radiographic evidence of malignancy in the right breast. Left breast nodule. Require spot compression MLO view and breast ultrasound. BI-RADS Category 0 - Incomplete: Need additional imaging evaluation Breast Density - Category C - Heterogeneously dense Breast density Category C or D implies that the patient has dense breast tissue. Dense breast tissue can make it harder to find cancer on a mammogram. Dense breast tissue is also associated with an incr eased risk of breast cancer. This information about the result of the mammogram report was provided to the patient to raise their awareness. Use this report when you speak with the patient about their risks for breast cancer, which includes their family history. At that time, you may recommend additional screening tests (Ultrasoun d or MRI) as these tests may add significant information. A negative radiographic report should not delay biopsy if a dominant or clinically suspicious mass is present. Up to ten percent of cancers are not identified on mammography. A negative report may reinforce clinical impression. Adenosis and dense breasts may obscure an underlying neoplasm. False positive reports average 6 to 10%. Patient will receive a letter notifying them of these results.
== END 2023-11-18 00:29 ==
LOC: DI 00:09
PROVIDERS: PCP Nurse Practitioner Family; Visit Provider Nurse Practitioner Family
DX: Z12.31 Encounter for screening mammogram for malignant neoplasm of breast (principal); R92.323 Mammographic fibroglandular density, bilateral breasts
CPT/HCPCS: 77063; 77067

== ENCOUNTER 2023-12-13 02:17 | Outpatient (CLI) | payer BC, SELFPAY ==
--- NOTE | 2023-12-13 | DI.MAMMO_ITS ---
Exam(s) MG MAMMO SCREEN CALL BACK UNI US BREAST LT LIMITED EXAM: MG MAMMO SCREEN CALL BACK UNI and U/S breast LT limited CLINICAL HISTORY: R92.8 ABN mammo, left breast nodule 12 X 8 mm located 6cm in from nipple. TECHNIQUE: Craniocaudal and mediolateral oblique Full Field Digital Mammography views of the left br east with Computer Aided Diagnosis followed by Tomosynthesis and left breast ultrasound. COMPARISON: Comparison is made with prior examinations. FINDINGS: Mammography/Tomosynthesis: Masses/Architectural Distortion: There does appear to be a partially obscured well-circumscribed nodu le in the upper outer quadrant of the left breast corresponding to the finding on the knee show mammo gram. There are no areas of architectural distortion. Microcalcifictions: No suspicious pleomorphic-type are seen. Skin Thickening/Nipple Retraction: None. Limited left breast US: Echotexture: Normal appearance of the glandular tissue. Shadowing: No suspicious foci. Cyst: There is a cyst measuring 0.7 cm at the 12 o'clock position of the left breast 5 cm from the ni pple. Solid lesions: There is a well-circumscribed radially oriented ovoid nodule at the 12 o'clock positio n of the left breast 5 cm from the nipple. It measures 0.5 x 0.7 cm. Ductal dilation: None. IMPRESSION: 1. Well-circumscribed 0.7 cm solid nodule at the 12 o'clock position of the left breast 5 cm from the nipple. No definite malignant characteristics are seen at this time. 2. A six-month follow-up mammogram and limited left breast ultrasound is requested for re-evaluation. 3. The findings were discussed with the patient on the date of the examination. BI-RADS Category 3 - 6 month - Probably Benign Finding: Recommend follow-up imaging in 6 months Breast Density - Category C - Heterogeneously dense Breast density Category C or D implies that the patient has dense breast tissue. Dense breast tissue can make it harder to find cancer on a mammogram. Dense breast tissue is also associated with an incr eased risk of breast cancer. This information about the result of the mammogram report was provided to the patient to raise their awareness. Use this report when you speak with the patient about their risks for breast cancer, which includes their family history. At that time, you may recommend additional screening tests (Ultrasoun d or MRI) as these tests may add significant information. A negative radiographic report should not delay biopsy if a dominant or clinically suspicious mass is present. Up to ten percent of cancers are not identified on mammography. A negative report may reinforce clinical impression. Adenosis and dense breasts may obscure an underlying neoplasm. False positive reports average 6 to 10%. Patient will receive a letter notifying them of these results.
== END 2023-12-13 02:37 ==
LOC: DI 02:17
PROVIDERS: PCP Nurse Practitioner Family; Visit Provider Nurse Practitioner Family
DX: Z12.31 Encounter for screening mammogram for malignant neoplasm of breast (principal); R92.8 Other abnormal and inconclusive findings on diagnostic imaging of breast
CPT/HCPCS: 76642; 77063; 77067

== ENCOUNTER 2024-03-06 01:34 | Outpatient (CLI) | payer BC, SELFPAY ==
--- NOTE | 2024-03-06 08:15 | DI.MRI_ITS ---
Exam(s) MR LUMBAR SPINE WO EXAM: MR LUMBAR SPINE WO CLINICAL HISTORY: low back pain radiating to lt leg,no relief with PT,m54.5,m79.605. TECHNIQUE: Multiplanar multisequence MRI of the Lumbar spine was performed. COMPARISON: CR XR LUMBAR SPINE COMPLETE from 09/10/2020 MR MR LUMBAR SPINE WO from 01/26/2021 FINDINGS: Bones: The last intervertebral disc space is designated the L5/S1 level for the numbering purpose of this examination. The vertebral body heights are well maintained. Alignment is satisfactory. Mild d egenerative endplate signal changes are seen, particularly at L2-3 and L5-S1. There is again seen and hyperintense round lesion in the L3 vertebral body on both T1 and T2 weighted images suggestive of a n intraosseous hemangioma. Cord: The conus tip ends at the T12 level. It is of normal size and signal intensity. T12-L1: No disc herniations or bulges are present. No central spinal canal or neural foraminal stenos is. L1-2: No disc herniations or bulges are present. No central spinal canal or neural foraminal stenosis . L2-3: There is again seen a left lateral disc herniation extending into the left neural foramen. The re is no compression of the exiting nerve root. No central spinal canal or neural foraminal stenosis . L3-4: No disc herniations or bulges are present. No central spinal canal or neural foraminal stenosis . L4-5: There is a mild diffuse disc bulge. There is also mild hypertrophy of the ligamentum flavum. There is very mild narrowing of the central spinal canal. No significant neural foraminal stenosis i s seen.There are mild degenerative changes of the facets. L5-S1: There is a small to moderate size left paracentral disc herniation at L5-S1. It causes left l ateral recess stenosis and compresses the left S1 nerve root. There is mild narrowing of the central spinal canal. No significant neural foraminal stenosis is seen. Soft tissues: The visualized SI joints and sacrum are well maintained. The paraspinal soft tissues ar e unremarkable. IMPRESSION: 1. Left paracentral disc herniation at L5-S1 causing left lateral recess stenosis and compression of the left S1 nerve root. 2. Degenerative changes at L4-L5 causing mild narrowing of the central spinal canal. 3. Left lateral disc herniation at L2-L3 is again seen but no nerve root compression is present. DATA REPOSITORY:
== END 2024-03-06 01:54 ==
LOC: DI 01:34
PROVIDERS: PCP Nurse Practitioner Family; Visit Provider Nurse Practitioner Family
DX: M51.27 Other intervertebral disc displacement, lumbosacral region (principal)
CPT/HCPCS: 72148

== ENCOUNTER 2024-03-28 11:54 | Outpatient (CLI) | payer BC, SELFPAY ==
--- NOTE | 2024-03-28 06:00 | DI.RAD_ITS ---
Exam(s) XR PAIN CLINIC LUMBAR SP 2V EXAM: XR PAIN CLINIC LUMBAR SP 2V CLINICAL HISTORY: Lumbar Radiculopathy TECHNIQUE: 2D and realtime digital imaging was performed. Radiologist not present. CONTRAST MATERIAL: None. COMPARISON: No exams were available for comparison FINDINGS: Fluoroscopy was provided for pain management therapy. Spinal injection Please refer to procedure report or details. Radiation Exposure Index: Ka,r=14.36 mGy IMPRESSION: As above. RADIATION DOSE DELIVERED:
[2024-03-28 12:05] VITALS: BP 139/75; PULSE 65; RESP 18; TEMP 36.5; O2SAT 100
--- NOTE | 2024-03-28 12:35 | PDOC.PAIN ---
Date of service: 03/28/24 Time of Service: 12:54 Pain Managment Procedure Note Procedure Note Procedure Note: Lumbar Interlaminar Epidural Steroid Injection ? Location: L5-S1 ? Pre-procedure Diagnosis: M54.16- Radiculopathy, LUMBAR region ? Post-procedure Diagnosis:? The same as above ? Sedation:? ? None ? Medication: Depo-Medrol 80 mg, Omnipaque 1 mL ? Estimated blood loss:? less than 2 cc ? Surgeon:? Jayy Rashid MD COMMENT: ? Procedure Detail:? The procedure and potential risks were explained to the patient and informed written consent was obtained. The patient was escorted to the procedure room and placed in the prone position. Pillows were utilized for proper positioning and comfort. Time out was performed in the procedure room with nursing staff confirming the patient's identity, procedure to be performed, allergies, and any blood thinning or anti-platelet medications.? The patient's neck and upper back was prepped with ChloraPrep and draped in a sterile fashion. Sterile technique was maintained throughout the procedure.? Sterile gloves were used, a face mask was worn, and new single dose vials of all medications were used with the top being swabbed with alcohol and given time to dry prior to withdrawal of medication. Lidocane 1% was used to anesthetize the skin.Using a 25-gauge 1.5 inch needle, 1% lidocaine was instilled into the superficial soft tissue overlying the targeted area to provide local anesthesia. With fluoroscopic guidance, a 17 -gauge Tuohy needle was advanced toward the interlaminar space of L5-S1. The needle was then advance through the ligamentum flavum and into the posterior epidural space using the loss of resistance technique. Correct needle placement was confirmed through review of the AP and contralateral oblique fluoroscopic views. A 19-gauge arrow catheter was threaded cephalad to the Left Following negative aspiration, one cc of Omnipaque 240 contrast was injected which confirmed good flow throughout the epidural space and no evidence of vascular flow or flow into adjacent compartments. Next, following negative aspiration, 1 cc's of normal saline and 80mg of Depo-Medrol was injected. The needle was gently removed. The patient tolerated the procedure well and was transported to the recovery area for observation and discharge instructions. Permanent images saved and recorded. PAIN PRE-PROCEDURE 06/18 POST-PROCEDURE 06/18 Plan:? Follow up prn. COMMENT: would repeat prn or consider L5 TFESI
[2024-03-28 12:44] VITALS: O2SAT 100
[2024-03-28 12:50] VITALS: O2SAT 99
[2024-03-28] MEDS: Epidural Tray 1 EACH MC (12:54)
[2024-03-28] MEDS: methylPREDNISolone ACETATE 40 MG/ML VIAL IJ (12:55)
[2024-03-28] MEDS: Omnipaque 240 MG/ML 50 ML BTL IJ (12:55)
== END 2024-03-28 11:55 | disposition home or self-care (01) ==
PROVIDERS: PCP Nurse Practitioner Family; Visit Provider Anesthesiology Pain Medicine
DX: M54.16 Radiculopathy, lumbar region (principal)
CPT/HCPCS: 00123; 62323; 72100; J1010; Q9967

== ENCOUNTER 2024-06-12 02:31 | Outpatient (CLI) | payer BC, SELFPAY ==
--- NOTE | 2024-06-12 07:40 | DI.US_ITS ---
Exam(s) US BREAST LT COMPLETE MG MAMMO DIAGNOSTIC UNI EXAM: MG MAMMO DIAGNOSTIC UNI-LEFT AND COMPLETE LEFT BREAST ULTRASOUND CLINICAL HISTORY: 3-6 mo f/u,r92.8,lt breast nodule,z09. TECHNIQUE: Unilateral LEFT BREAST CC AND MLO mammographic images were obtained with 3D tomosynthesis technique and utilizing computer aided detection (CAD). COMPLETE LEFT BREAST ULTRASOUND performed including all 4 quadrants as well as the left axilla. COMPARISON: Prior mammograms were reviewed, the most recent being December 2023. Prior ultrasound of December 2023 reviewed. FINDINGS: DIAGNOSTIC LEFT BREAST MAMMOGRAM: Again noted is moderately dense fibroglandular tissue. Previously described small lobulated nodular density appears unchanged in size on the 3D mammogram. There are no new spiculated masses nor malignant-appearing microcalcification groups in the left em st. No new architectural distortion or skin thickening-traction. COMPLETE LEFT BREAST ULTRASOUND: At the 12 o'clock position there are 3 findings. Two of these findings are small microcysts, 1 of wh ich has decreased in size from previous. The 3rd finding is an unchanged slightly lobulated wider than taller 6 x 7 mm solid nodule with neutr al through transmission, this corresponding to the nodule on the mammogram. It is unchanged in size and configuration from the prior ultrasound examination of December 2023. Probably represents hemor rhagic microcyst or fibroadenoma; less likely malignancy. At the 4 o'clock position there is an 8 x 4 mm benign microcyst. No other ultrasound findings in all 4 quadrants. Scanning of the left axilla is negative for significant adenopathy. IMPRESSION: 1. Stable appearance of the mammogram. 2. Stable unchanged appearance of small 0.7 x 0.6 cm slightly lobulated solid nodule at 12 o'clock po sition on ultrasound, this corresponding to the finding on the mammogram. 3. Appropriate follow-up would be to repeat the ultrasound at the time of her next yearly bilateral m ammogram which would be in 6 months. The patient was informed of the findings and follow-up recommendations by myself prior to leaving the department today. BI-RADS Category 3 - 6 month - Probably Benign Finding: Recommend follow-up mammography in 6 months Breast Density - Category C - Heterogeneously dense Breast density Category C or D implies that the patient has dense breast tissue. Dense breast tissue can make it harder to find cancer on a mammogram. Dense breast tissue is also associated with an incr eased risk of breast cancer. This information about the result of the mammogram report was provided to the patient to raise their awareness. Use this report when you speak with the patient about their risks for breast cancer, which includes their family history. At that time, you may recommend additional screening tests (Ultrasoun d or MRI) as these tests may add significant information. A negative radiographic report should not delay biopsy if a dominant or clinically suspicious mass is present. Up to ten percent of cancers are not identified on mammography. A negative report may reinforce clinical impression. Adenosis and dense breasts may obscure an underlying neoplasm. False positive reports average 6 to 10%. Patient will receive a letter notifying them of these results.
== END 2024-06-12 02:51 ==
LOC: DI 02:31
PROVIDERS: PCP Nurse Practitioner Family; Visit Provider Nurse Practitioner Family
DX: Z09 Encounter for follow-up examination after completed treatment for conditions other than malignant neoplasm (principal); R92.8 Other abnormal and inconclusive findings on diagnostic imaging of breast
CPT/HCPCS: 76642; 77061; 77065; G0279

== ENCOUNTER 2024-08-08 15:12 | Outpatient (REF) | payer BC, SELFPAY ==
[2024-08-08 13:42] LABS: Anion Gap 11.8 mmol/L (3-11); BUN 16 mg/dL (7-18); CO2 26.2 mmol/L (21.0-32.0); CREATININE 0.8 mg/dL (0.55-1.02); Calcium 9.5 mg/dL (8.5-10.1); Chloride 105 mmol/L (98-107); Estimated GFR 84.82 (mL/min/1.73m2); Glucose 102 mg/dL (74-106); Potassium 4.3 mmol/L (3.5-5.1); Sodium 143 mmol/L (136-145)
== END 2024-08-08 15:13 | disposition home or self-care (01) ==
LOC: LBN 15:12
PROVIDERS: PCP Nurse Practitioner Family; Visit Provider Nurse Practitioner Family
DX: I10 Essential (primary) hypertension (principal)
CPT/HCPCS: 80048

== ENCOUNTER 2024-11-20 01:01 | Outpatient (CLI) | payer BC, SELFPAY ==
--- NOTE | 2024-11-20 07:27 | DI.US_ITS ---
Exam(s) MG MAMMO DIAGNOSTIC BI US BREAST LT LIMITED EXAM: MG MAMMO DIAGNOSTIC BI CLINICAL HISTORY: 3-6 mo f/u,f/u abnl mammo, r92.8,z09,lt breast nodule. COMPARISON: US US BREAST LT LIMITED from 10/29/2022 US US BREAST LT LIMITED from 12/13/2023 US US BREAST LT COMPLETE from 06/12/2024 US US BREAST LT LIMITED from 11/20/2024 Mammograms back to 2016 TECHNIQUE: Craniocaudal and mediolateral oblique Full Field Digital Mammography views of both breasts with Computer Aided Diagnosis followed by Tomosynthesis and left breast ultrasound. FINDINGS: Mammography/Tomosynthesis: Masses: None seen. Previously noted nodule is obscured by overlying breast tissue. Architectural Distortion: None seen. Microcalcifications: No suspicious pleomorphic-type are seen. Skin Thickening/Nipple Retraction: None. Left breast US: Echotexture: Normal appearance of the glandular tissue. Shadowing: No suspicious foci. Stable appearance of smoothly marginated hypoechoic nodule in the 12 o'clock position 4 cm from the nipple, measuring 7 x 4 x 7 millimeters. The nearby cystic area at has decreased in size. The previously noted cyst in the 4 o'clock position no longer present. Ductal dilation: None. IMPRESSION: 1. No evidence of malignancy is noted. 2. Unless there is more urgent need, follow-up screening mammography is recommended in 1 year. BI-RADS Category 2 - Benign Findings Breast Density - Category C - The breast are heterogeneously dense, which may obscure small masses. Breast density Category C or D implies that the patient has dense breast tissue. Dense breast tissue can make it harder to find cancer on a mammogram. Dense breast tissue is also associated with an increased risk of breast cancer. This information about the result of the mammogram report was provided to the patient to raise their awareness. Use this report when you speak with the patient about their risks for breast cancer, which includes their family history. At that time, you may recommend additional screening tests (Ultrasound or MRI) as these tests may add significant information. A negative radiographic report should not delay biopsy if a dominant or clinically suspicious mass is present. Up to ten percent of cancers are not identified on mammography. A negative report may reinforce clinical impression. Adenosis and dense breasts may obscure an underlying neoplasm. False positive reports average 6 to 10%. Patient will receive a letter notifying them of these results.
== END 2024-11-20 01:21 ==
LOC: DI 01:01
PROVIDERS: PCP Nurse Practitioner Family; Visit Provider Nurse Practitioner Family
DX: Z09 Encounter for follow-up examination after completed treatment for conditions other than malignant neoplasm (principal); R92.8 Other abnormal and inconclusive findings on diagnostic imaging of breast
CPT/HCPCS: 76642; 77062; 77066; G0279

== ENCOUNTER 2025-01-11 15:47 | Outpatient (REF) | payer BC, SELFPAY | END 2025-01-11 15:48 | disposition home or self-care (01) | LOC: LBN 15:47 | PROVIDERS: PCP Nurse Practitioner Family; Visit Provider Physician Assistant Medical | DX: N89.8 Other specified noninflammatory disorders of vagina (principal) | CPT/HCPCS: 87480; 87510; 87660 ==

== ENCOUNTER 2025-01-14 10:43 | Outpatient (REF) | payer BC, SELFPAY | END 2025-01-14 10:44 | disposition home or self-care (01) | LOC: LBN 10:43 | PROVIDERS: PCP Nurse Practitioner Family; Visit Provider Physician Assistant | DX: R30.0 Dysuria (principal) | CPT/HCPCS: 87480; 87510; 87660 ==

== ENCOUNTER 2025-02-12 15:14 | Outpatient (REF) | payer BC, SELFPAY ==
--- NOTE | 2025-02-12 15:00 | VUL_PTH ---
PATIENT: Jeimy Haley LOC: [facility]#:[id number] AGE/SX: 59/F ROOM: RE02/12/[address]: Kristine Chisholm DO : 1965 BED: DIS: 02/12/2025 SPEC #: [id number] RECD: 02/12/25 18:30 STATUS: TEQUILA REQ #: [id number] EDGAR: 02/12/25 15:[address]: Kristine Chisholm DEPT: Surgical Specimen RECD BY: Alfreda Schmidt ENTERED: 02/12/25 18:31 SP TYPE: VUL OTHR DR: Robert Davis DNP Tissues: 1 - VULVA BIOPSY Procedures: GROSS AND MICRO LEVEL 4 Comments: [id number]
== END 2025-02-12 15:15 | disposition home or self-care (01) ==
LOC: LBN 15:14
PROVIDERS: PCP Nurse Practitioner Family; Visit Provider Obstetrics & Gynecology
DX: L90.0 Lichen sclerosus et atrophicus (principal)
CPT/HCPCS: 88305

== ENCOUNTER 2025-02-14 01:43 | Emergency (ER) | payer BC, SELFPAY ==
[2025-02-14] VITALS (12 sets, daily range): BP systolic 165–179; BP diastolic 83–96; PULSE 65–83; RESP 12–22; O2SAT 97–100
--- NOTE | 2025-02-14 01:45 | RT.EKG_ITS ---
APPROVED REPORT Exam: Resting ECG Reason for Exam: chest pain Patient Location: E HR:70 bpm ECG Measurements Heart Rate 70 AXIS OR 174 P 43 QRSd 85 QRS 6 QT 374 T 40 QTc 403 Conclusion Sinus rhythm...normal P axis, V-rate 60- 99 Low voltage, precordial leads...precordial leads <1.0mV Normal Electrocardiogram
--- NOTE | 2025-02-14 01:54 | W.ED.GENAD ---
Discharge Plan Disposition Patient Disposition: Home Condition: Good Discharge Details Clinical Impression: Chest pain Primary Care Provider: Robert Leos ED Provider: Rajesh Curiel [place] Meds and New Rx's Prescriptions: New famotidine 20 mg tablet 20 mg PO BID Qty: 60 0RF Continued cholecalciferol (vitamin D3) 2,000 unit tablet 2,000 unit PO DAILY Qty: 90 3RF triamcinolone acetonide 0.025 % cream 1 applic topical BID Qty: 15 0RF triamcinolone acetonide 0.025 % cream 1 applic topical BID PRN (Reason: itching) Qty: 15 0RF nystatin-triamcinolone 100,000-0.1 unit/g-% cream 1 applic topical BID Qty: 60 2RF estradiol [Vagifem] 10 mcg tablet 10 mcg vaginal DAILY 90 Days Qty: 30 3RF lisinopril 10 mg tablet 10 mg PO DAILY Qty: 90 3RF tirzepatide (weight loss) 2.5 mg/0.5 mL solution 2.5 mg subcut QWEEK 28 Days Qty: 2 0RF Rx Instructions: TIRZEPATIDE Concentration: Tirzepatide 25mg/mL + Hydroxocobalamin 2.5 mg/mL solution Tirzepatide + Hydroxocobalamin for compounding. Patient requires additional drug component to decrease risk of side effects of fatigue Week 1-4 Inject 0.1mL once weekly Week 5-8 Inject 0.2mL once weekly Week 9-12 Inject 0.3mL once weekly Week 13-16 Inject 0.4 mL once weekly Week 17-20 Inject 0.0.5mL once weekly Week 21+ Inject 0.6mL once weekly Discharge Instructions Instructions: Chest Pain, Adult ED Additional Instructions: You were seen in the ED for chest pain. Your EKG, CXR, labs and exam are all reassuring. Pain may have been related to reflux so we will start you on famotidine for this. You should follow up with your PCP and consider outpatient stress testing to complete the work up. Return to ED for new/worse pain, shortness of breath, fainting, neurological change, other concerns. Stand Alone Forms: Portal Information Referrals: Robert Leos NP [Primary Care Provider, Medicine] [facility] General Mode of arrival: ambulatory. Date/Time Provider Initiated Documentation: 02/14/25 01:47. Limitations to Documentation: no limitations. Information obtained by: patient and RN notes reviewed. HPI Narrative: Patient presents to ED after waking up with chest pain. Patient reports waking up and feeling like there was something in her throat as well as some chest tightness. She has had some shooting pain in the chest as well. She has slight nausea, but denies sweats, lightheadedness, back pain, abdominal pain, shortness of breath. Symptoms are still present on arrival, pretty much unchanged. She has history of HTN and obesity but no DM, high cholesterol, family history and does not smoke. She denies any history of blood clots, leg pain or leg swelling. Related Data Home Medications Medication Instructions Recorded Confirmed cholecalciferol (vitamin D3) 50 2,000 unit PO DAILY #90 tabs 05/14/19 02/14/25 mcg (2,000 unit) tablet lisinopril 10 mg tablet 10 mg PO DAILY #90 tabs 04/25/24 02/14/25 triamcinolone acetonide 0.025 % 1 applic topical BID PRN itching 08/08/24 02/14/25 topical cream #15 grams triamcinolone acetonide 0.025 % 1 applic topical BID #15 grams 01/14/25 02/14/25 topical cream estradiol 10 mcg vaginal tablet 10 mcg vaginal DAILY 3 months #30 01/28/25 02/14/25 (Vagifem) tabs nystatin-triamcinolone 100,000 1 applic topical BID #60 grams 01/28/25 02/14/25 unit/g-0.1 % topical cream tirzepatide (weight loss) 2.5 2.5 mg (0.5 mL) subcut QWEEK 4 02/08/25 02/14/25 mg/0.5 mL subcutaneous solution weeks #2 mL famotidine 20 mg tablet 20 mg PO BID #60 tabs 02/14/25 Previous Rx's Medication Instructions Recorded cholecalciferol (vitamin D3) 50 2,000 unit PO DAILY #90 tabs 05/14/19 mcg (2,000 unit) tablet lisinopril 10 mg tablet 10 mg PO DAILY #90 tabs 04/25/24 triamcinolone acetonide 0.025 % 1 applic topical BID PRN itching 08/08/24 topical cream #15 grams triamcinolone acetonide 0.025 % 1 applic topical BID #15 grams 01/14/25 topical cream estradiol 10 mcg vaginal tablet 10 mcg vaginal DAILY 3 months #30 01/28/25 (Vagifem) tabs nystatin-triamcinolone 100,000 1 applic topical BID #60 grams 01/28/25 unit/g-0.1 % topical cream tirzepatide (weight loss) 2.5 2.5 mg (0.5 mL) subcut QWEEK 4 02/08/25 mg/0.5 mL subcutaneous solution weeks #2 mL famotidine 20 mg tablet 20 mg PO BID #60 tabs 02/14/25 Allergies Allergy/AdvReac Type Severity Reaction Status Date / Time No Known Allergies Allergy Verified 02/14/25 01:55 General Stated Complaint: Chest Pain JOSE: 3 Exam Narrative Exam Narrative: Const: Obese female in NAD. VS per triage. HEENT: NC/AT. Normal facial exam. Neck: Supple. Trachea midline. Lungs: Normal respiratory effort. Lungs are clear. Cor: RRR without murmur. Good radial pulses. GI: Soft/ND/NT. Neuro: A+O x 3. Normal speech, mentation, gait. Cranial nerves II - XII grossly intact. No gross motor or sensory deficit. Ext: No C/C/E. Course Vital Signs Vital signs: Vital Signs Pulse 83 02/14/25 01:50 Respiratory Rate 18 02/14/25 01:50 Blood Pressure 165/83 H 02/14/25 01:50 Pulse Oximetry 100 02/14/25 01:50 Pulse 83 02/14/25 01:50 Respiratory Rate 18 02/14/25 01:50 Blood Pressure 165/83 H 02/14/25 01:50 Pulse Oximetry 100 02/14/25 01:50 Oxygen Delivery Method Room Air 02/14/25 01:50 Oxygen Flow Rate 0 02/14/25 01:50 Pain Level 5 02/14/25 01:50 Medical Decision Making Patient presenting with sensation of something in her throat and chest tightness, a little nausea. It is still present. She has no other symptoms. Her EKG is normal per my read. Symptoms suggestive of GERD but she does have risk factors for cardiac disease. She is low risk for PE. Will treat initially with famotidine and mylanta. Send labs to include delta trop and d-dimer as well as abdominal labs, though no tenderness in the RUQ to suggest gallbladder problem. Chest imaging per d-dimer result. Patient's initial laboratory studies unremarkable. Initial troponin is 4. D-dimer is negative making PE very unlikely. Liver function and lipase normal. Symptoms resolved with the oral Mylanta and IV famotidine. A chest x-ray was obtained and per my read shows no acute cardiopulmonary process. Repeat troponin remains flat at 4. She is low risk per the HEART pathway and can be discharged home to see PCP and get outpatient stress testing. I will start her on famotidine. Return precautions provided. Imaging Data Radiologic Study: Attestation: I personally reviewed and interpreted this imaging study as follows: Imaging: X-Ray My impression: see [facility] Lab Data Lab results reviewed: Yes I reviewed the patient's lab results. Lab results narrative: see [facility] ECG Data Attestation: I personally reviewed and interpreted this ECG (s) as follows: Prior ECG tracings: not available for review Interpretation: normal PFSH All Active Problems (Updated 02/14/25 @ 04:24 by Rajesh Curiel MD) Chest pain (Acute) Obesity (Chronic) Lumbar radiculitis (Acute) Lumbar herniated disc (Acute) Vulvar irritation (Acute) Suspect lichen sclerosus Screening examination for STI (Acute) Immunization due (Acute) Pain involving joint of finger (Acute) Left middle finger - no injury Low back pain radiating to left leg (Chronic) MRI 01/26/21 - There are left side disc herniations at L 2-3 level and L5-S1 levels....There is a benign intraosseous hemangioma in the right side of the L3 vertebral body. 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 Brother Substance abuse Essential hypertension Alcohol abuse Maternal Grandfather , age 70 Essential hypertension Heart disease Paternal Grandfather , age 50 Stroke Alcohol abuse Maternal Grandmother , age 91 Breast cancer Paternal Grandmother , age 87 No problems noted. Son Alcohol abuse Substance abuse Daughter No problems noted. Social History Smoking/Tobacco Use Status: Never Second Hand Exposure: No Smoking risk assessment performed?: Yes Alcohol Intake: current Alcohol Intake frequency: a few times a month Alcohol type: beer, wine and hard liquor Drug use: Rarely Substance use type: marijuana Counseling given: No Counseling provided: none Caregiver/Support person: No Household members: spouse Housing: house Communication Needs: None Do you need help understanding health information?: Never Pets and animals: No Sexually active: Yes Do you think of yourself as: straight/heterosexual Current gender identity: female What is your relationship status?: How often do you talk on the phone with friends or family?: three or more times per week How often do you get together with friends or relatives?: three or more times per week How often do you attend yarsani or amish services?: 4 or more times per year Do you belong to any clubs or organized social groups?: no Panel score (0-1 are the most socially isolated patients): 3 What type of physical activity do you participate in: walking, running and yoga Duration: 15-30 minutes/day Frequency: 3-4 times per week Mariana/Orthodox: Yarsanism Special mariana needs: No Seatbelt use: always Helmet use: Yes Helmet use: always Drive intox or ride w/intox drivers' cash clerk: No Do you feel safe at home: Yes Do you feel safe in your relationship?: Yes History History 2 Para 2 Hx # Term Pregnancies 2 Multiple births Hx # Pregnancies Ectopic pregnancies AB induced Hx Number of Living Children 2 AB spontaneous Past Pregnancies Del. Date GA/Weeks # Preg Succ Route Wgt Sex Labor Lgth Anesthesia Location Prov Complic 11/10/87 Yes vaginal Male [facility] 08/09/90 Yes vaginal Female [facility] Delivery Date: 11/10/87 Last Updated by: LARRY Garnett Delivery Date: 08/09/90 Last Updated by: LARRY Garnett
[2025-02-14] MEDS: Famotidine 20 MG/2 ML VIAL 40 MG IVP (02:51)
[2025-02-14] MEDS: Mylanta Suspension 30 ML CUP PO (02:52)
[2025-02-14] MEDS: Normal Saline 100 ML 200 ML (02:55)
[2025-02-14 03:07] LABS: ALT 21 U/L (14-59); AST 16 U/L (15-37); Albumin 3.4 g/dL (3.4-5.0); Alkaline Phosphatase 81 U/L (46-116); Anion Gap 7.1 mmol/L (3-11); BUN 21 mg/dL (7-18); Bilirubin, Total 0.3 mg/dL (0.2-1.0); CO2 28.9 mmol/L (21.0-32.0); Calcium 8.9 mg/dL (8.5-10.1); Chloride 103 mmol/L (98-107); Glucose 110 mg/dL (74-106); Lipase 35 U/L (<78); Magnesium 1.9 mg/dL (1.8-2.4); Potassium 4.5 mmol/L (3.5-5.1); Sodium 139 mmol/L (136-145); Total Protein 7.3 g/dL (6.4-8.2); Troponin I 4 ng/L (<or=51)
[2025-02-14 03:08] LABS: Abs Immature Grans 0.02 10^3/uL (0.0-0.06); HCT 40.5 % (36.0-46.0); HGB 13.3 g/dL (11.2-15.7); Immature Grans % 0.3 %; MCH 28.8 pg (27.0-33.0); MCHC 32.8 % (32.0-36.0); MCV 88 fL (80-95); MPV 9.1 fL (8.0-11.0); Platelet Count 279 10^3/uL (130-400); RBC 4.62 10^6/uL (3.93-5.22); RDW 12.5 % (11.7-14.6); RDW-SD 39.8 fL; WBC 6.25 10^3/uL (4.4-10.8)
[2025-02-14 03:14] LABS: D-Dimer 392 ng/mlFEU (<500)
[2025-02-14 04:13] LABS: Troponin I 4 ng/L (<or=51)
--- NOTE | 2025-02-14 04:55 | DI.[facility]_ITS ---
PROCEDURE INFORMATION: Exam: XR Chest Exam date and time: 02/14/2025 3:30 AM Age: 59 years old Clinical indication: Chest pressure; Chest pain TECHNIQUE: Imaging protocol: Radiologic exam of the chest. Views: 2 views. COMPARISON: No relevant prior studies available. FINDINGS: Lungs: Clear. No consolidation or pulmonary edema. Pulmonary vasculature is normal in caliber. Pleural spaces: No pleural effusion or pneumothorax. Heart/Mediastinum: Heart size and cardiomediastinal contours are normal. Bones/joints: Unremarkable. IMPRESSION: No active disease in the chest. Dictated and Authenticated by: Carol Ann Traore MD. Orderin Moisés Mena MD
--- NOTE | 2025-02-14 05:10 | DI.RAD_ITS ---
Exam(s) XR CHEST 2V PA LATERAL EXAM: XR CHEST 2V PA LATERAL CLINICAL HISTORY: CP TECHNIQUE: 2D digital imaging was performed of the chest. Two images were obtained. PA and lateral views were obtained. COMPARISON: No exams were available for comparison FINDINGS: MEDIASTINUM: Normal. HEART: Normal. PULMONARY VASCULATURE: Normal. LUNGS: Clear. PLEURAL SPACE: No pleural effusion or pneumothorax. BONE:Within normal limits for the patient's age. OTHER FINDINGS:Normal. IMPRESSION: 1. No acute pulmonary findings. 2. The preliminary [facility] report was reviewed. DATA REPOSITORY: RADIATION DOSE DELIVERED:
== END 2025-02-14 04:58 | disposition home or self-care (01) ==
PROVIDERS: Emergency Provider Emergency Medicine; PCP Nurse Practitioner Family
DX: R07.9 Chest pain, unspecified (principal); R11.0 Nausea; I10 Essential (primary) hypertension
CPT/HCPCS: 99284 ×2; 96374; 36415; 80053; 83690; 93005; 71046; 83735; 84484; 85025; 85379; 93010